=== PATIENT | female | born 2000 | race Caucasian/White ===

== ENCOUNTER 2018-10-06 12:12 | Emergency (ER) | payer SELFPAY ==
[2018-10-06 12:14] VITALS: BP 146/88; PULSE 79; RESP 14; TEMP 36.5; O2SAT 100; BMI 24.5
[2018-10-06 12:55] LABS: Absolute Lymphocyte Count 1.98 X10^3/ul (0.83-4.51); Absolute Neutrophil Count 5.8 X10^3/uL (2.0-7.7); Basophil# 0.05 X10^3/uL; Basophil% 0.6 % (0-1); Eosinophil# 0.15 X10^3/uL; Eosinophils% 1.7 % (0-5); Hematocrit 43.7 % (37-47); Hemoglobin 14.4 g/dl (12.0-15.0); Lymphocyte # 1.98 X10^3/ul (4.0); Lymphocyte % 23.1 % (19-41); Mean Corpuscular Hgb 29.6 pg (27.0-32.0); Mean Corpuscular Volume 89.9 fL (81-99); Mean Platelet Vol. 11.3 fl (6.2-12.0); Monocyte# 0.63 X10^3/uL; Monocyte% 7.3 % (0-10); Neutrophil # 5.77 X10^3/uL (2.7-7.7); Neutrophil % 67.2 % (47-70); Platelet Count 304 K/mm3 (150-450); RBC Distribution Width CV 14.9 % (11.6-14.6); RBC Distribution Width SD 48.5 fl (35.1-43.9); Red Blood Count 4.86 M/mm3 (4.2-5.4); White Blood Count 8.6 K/mm3 (4.4-11.0)
[2018-10-06 12:59] LABS: POSITIVE COUNT NO; POSITIVE DIFFERENTIAL NO; POSITIVE MORPHOLOGY NO
[2018-10-06 13:14] LABS: Pregnancy, Serum, hCG Quali. NEGATIVE Negative (0-9 Nonpreg)
--- NOTE | 2018-10-06 14:20 | ED.VISSUMM ---
- ER Visit Summary Date of Service: 10/06/18 Chief Complaint: Vaginal bleeding History of Present Illness: The patient is a 18 F with essentially a month of vaginal bleeding. Starting to improve but then became somewhat worse. She has had occasional clots and cramps but no lateralizing abdominal pain. Her last normal menstrual period was in late July. She initially thought that she could be but she had a negative test. She has never been before. Physical Examination: She is not in distress. Vital signs are within normal limits. Abdomen is soft and nontender. Female chaperoned pelvic examination reveals a closed cervix with no evidence of active bleeding. Test Results: CT is negative. Hemoglobin normal. Emergency Department Course and Treatment: She has a normal hemoglobin. She is not lightheaded. Cervix is closed. HCG is negative. I feel she can safely follow-up with RESERVES CLERK as an outpatient. She would like to follow-up with Dr. Beal at [facility]. Treatment Plan: Follow-up with RESERVES CLERK Disposition: Home stable Impression: Initial encounter abnormal vaginal bleeding This note was generated with [employer] dictation software. It may contain incorrect words, spelling, and punctuation that were not noted in review of the chart prior to signing ED Disposition - Plan for ED Patient: Chief Complaint: Vag Bld, Preg Instructions: ED Bleed Irregular Vaginal Additional Instructions: Followup with Dr. Beal
--- NOTE | 2018-10-06 14:24 | ED.DCSUM_ITS ---
- ER Visit Summary Date of Service: 10/06/18 Chief Complaint: Vaginal bleeding History of Present Illness: The patient is a 18 F with essentially a month of vaginal bleeding. Starting to improve but then became somewhat worse. She has had occasional clots and cramps but no lateralizing abdominal pain. Her last normal menstrual period was in late July. She initially thought that she could be but she had a negative test. She has never been before. Physical Examination: She is not in distress. Vital signs are within normal limits. Abdomen is soft and nontender. Female chaperoned pelvic examination reveals a closed cervix with no evidence of active bleeding. Test Results: CT is negative. Hemoglobin normal. Emergency Department Course and Treatment: She has a normal hemoglobin. She is not lightheaded. Cervix is closed. HCG is negative. I feel she can safely follow-up with DOCUMENT CLERK as an outpatient. She would like to follow-up with Dr. Beal at [facility]. Treatment Plan: Follow-up with DOCUMENT CLERK Disposition: Home stable Impression: Initial encounter abnormal vaginal bleeding This note was generated with [employer] dictation software. It may contain incorrect words, spelling, and punctuation that were not noted in review of the chart prior to signing ED Disposition - Plan for ED Patient: Chief Complaint: Vag Bld, Preg Instructions: ED Bleed Irregular Vaginal Additional Instructions: Followup with Dr. Beal
[2018-10-06 14:33] VITALS: BP 123/68; PULSE 70; RESP 15; O2SAT 97
--- OUTSIDE RECORDS SUMMARY | 2018-11-29 20:57 | XMS RPT_ITS ---
:2000 Author Organization OHIP Care Team Providers Name Role Phone PREETHI SANDOVAL ([facility]) Attending Unavailable PREETHI SANDOVAL ([facility]) Referring Unavailable DONNELL WHITE Attending Unavailable PREETHI SANDOVAL ([facility]) Referring Unavailable PREETHI SANDOVAL ([facility]) Attending Unavailable [facility] Admitting Unavailable [facility] Attending [facility] Care Unavailable DR CLYDE CHAVEZ Admitting Unavailable DR CLYDE CHAVEZ Attending Unavailable NO, DOCTOR ON Referring Unavailable DR CLYDE CHAVEZ Primary Care Unavailable NO, DOCTOR ON Consulting Unavailable Bo Pillai Attending Unavailable No Doctor Assigned, Nodr Primary Care Unavailable Bo Pillai Admitting Unavailable Bo Pillai Attending Unavailable No Doctor Assigned, Nodr Primary Care Unavailable Valentin Villalba Attending Unavailable Primay Care Physicia, No Primary Care Unavailable PROBLEMS PROBLEMS DATE TYPE CONDITION / CODE ATTENDING STATUS SOURCE 10/06/2018 Active Abnormal uterine NA Active [facility] and vaginal [facility] [place] bleeding, Repository unspecified / N93.9(ICD-10) 10/06/2018 Active Unknown / PREETHI SANDOVAL Active [facility] UNK(Unknown) (CN) [place] Repository PROCEDURES PROCEDURES No Procedure Records FoundRESULTS RESULTS PROCEDURE Observed: 10/15/2018 Status: COMPLETED Source: [place] 11:46 AM [facility] REPOSITORY HNO ID: [id number] Author: Rafia Rizvi Apn Student Service: (none) Author Type: (none) Type: Procedures Filed: 10/15/2018 4:55 PM Note Text: Procedures Rafia Belkys [place] Student Observed: 10/15/2018 Status: F Source: [place] TRICHOMONAS PREP 10:25 AM [facility] REPOSITORY Sp. Request/Comment: - Swab Smear Result - Negative for Trichomonas vaginalis antigen This test was developed and its performance characteristics determined by [facility] [place] ([facility] It has not been cleared or approved by the FDA. [facility] is regulated under CLIA as qualified to perform high-complexity testing. This test is used for clinical purposes. It should not be regarded as investigational or for research. Performed By: #### TRICHO #### [place] [address] Observed: 10/15/2018 Status: F Source: [place] BACT/CAND VAG GRM ST 10:25 [facility] REPOSITORY Sp. Request/Comment: - Swab Smear Result - BACTERIAL VAGINOSIS RESULT: Stain results consistent with bacterial vaginosis. --> ABNORMAL ALERT No Yeast observed Moderate Polymorphonuclear leukocytes Many Epithelial cells Performed By: #### BVCNSM #### [place] [address] Observed: 10/15/2018 Status: F Source: [place] URINE CULTURE 10:25 [facility] REPOSITORY Sp. Request/Comment: - Specimen received in preservative Culture Result - <10,000 CFU/ml Normal urogenital sean Performed By: #### URCUL #### [place] [address] GC/CHLAMYDIA AMPLIF Collected: 10/15/2018 Status: F Source: [place] 10:25 AM [facility] REPOSITORY TYPE CODE TESTS RESULT OUT OF REFERENCE UNITS RANGE LAB GCCTSR GC/Chlam Amp Cervix Source LAB GCAMPL GC Negative Amplification for Neisseria gonorrhoeae by amplification. LAB CLAMPL Chlamydia Negative Amplif for Chlamydia trachomatis by amplification. Performed By: #### GCCT #### [facility] [address] [place], [place] [address] PROGRESS Observed: 10/15/2018 Status: COMPLETED Source: [place] 9:59 AM [facility] [place] REPOSITORY HNO ID: [id number] Author: Preethi Sandoval Service: (none) Author Type: International Sales Representative Type: Progress Notes Filed: 10/15/2018 4:55 PM Note Text: Silvana Heredia is a 18 year old female who presents for vaginal discharge and odor for 2 week(s). Reports pelvic pain is achy pain. Cramping has not stopped since last visit, pain was bad again a few nights ago just as bad as when she went to emergency room. Used warm water/heat to help with symptoms. Vaginal odor now started and she notes more discharge when cramping. Vaginal discharge: moderate amount, foul smelling and white. Itching: No Dyspareunia: YES Fever/chills: No Abdominal pain: Yes, mostly lower abdominal pain Bladder: Negative for urgency and frequency, + dysuria Bowel: No blood in stool, pain with BM, tarry stool, persistent diarrhea or constipation Any new sexual partners or concern for STD exposure: No Any history of STDs: None Does your partner have any new complaints: No Are you currently taking any medications to treat vaginitis: No Do you use feminine sprays, douches or deodorants: No Menstrual cycle: cycles irregular q 21-40 days and 2-14 days of flow. Denies any further heavy vaginal bleeding Contraception: none, natural family planning and withdrawal Last pap: n/a Past medical, surgical, social history, medications and allergies reviewed and updated. OBJECTIVE: BP 122/72 Wt 144 lb (65.3kg) LMP 09/07/2018 GENERAL: Well developed, well nourished in no apparent distress ABDOMEN: soft, non-tender and no masses PELVIC: external genitalia normal, normal Bartholin's glands, urethra, Oriska's glands, no vulvar lesions, no cervical lesions, good vaginal support, physiologic discharge present, normal appearing perineal body and perianal region BIMANUAL: uterus normal size, shape and consistency, no adnexal masses and non-tender. RECTOVAGINAL: deferred. ASSESSMENT/PLAN: Vaginal Discharge, Vaginal Odor Office Visit on 10/15/18 -GC/CHLAMYDIA DNA DET -UA DIP OB, URINE (POC) -UA DIP, URINE (POC) -BACTERIAL VAGINOSIS SCORED GRAM STAIN -VAGINAL SMEAR FOR GUILLERMO -TRICHOMONAS PREP -URINE CULTURE Vaginitis culture collected to screen for Yeast, BV and Trichomonas STD screening: Accepted STD check for Gonorrhea and Chlamydia. Any new medications given to the patient have been explained as to directions, reasons for prescribing and side effects. Perineal hygeine and safe sex were discussed with the patient. Will call patient with results once received. Preethi Sandoval APRN.CNM CNOV Observed: 10/15/2018 Status: COMPLETED Source: [place] 9:45 AM [facility] REPOSITORY Office Visit (WOOB) SILVANA HEREDIA ([id number]) 2000 F Date Time Provider Department 10/15/18 9:45 AM PREETHI SANDOVAL ([place]) WOOB During your visit today, we recorded the following information about you: Blood pressure Weight Last Period 122/72 65.3 kg 09/07/18 Preethi Sandoval APRN.CNM 10/15/2018 4:55 PM Signed Silvana Heredia is a 18 year old female who presents for vaginal discharge and odor for 2 week(s). Reports pelvic pain is achy pain. Cramping has not stopped since last visit, pain was bad again a few nights ago just as bad as when she went to emergency room. Used warm water/heat to help with symptoms. Vaginal odor now started and she notes more discharge when cramping. Vaginal discharge: moderate amount, foul smelling and white. Itching: No Dyspareunia: YES Fever/chills: No Abdominal pain: Yes, mostly lower abdominal pain Bladder: Negative for urgency and frequency, + dysuria Bowel: No blood in stool, pain with BM, tarry stool, persistent diarrhea or constipation Any new sexual partners or concern for STD exposure: No Any history of STDs: None Does your partner have any new complaints: No Are you currently taking any medications to treat vaginitis: No Do you use feminine sprays, douches or deodorants: No Menstrual cycle: cycles irregular q 21-40 days and 2-14 days of flow. Denies any further heavy vaginal bleeding Contraception: none, natural family planning and withdrawal Last pap: n/a Past medical, surgical, social history, medications and allergies reviewed and updated. OBJECTIVE: BP 122/72 Wt 144 lb (65.3kg) LMP 09/07/2018 GENERAL: Well developed, well nourished in no apparent distress ABDOMEN: soft, non-tender and no masses PELVIC: external genitalia normal, normal Bartholin's glands, urethra, Oriska's glands, no vulvar lesions, no cervical lesions, good vaginal support, physiologic discharge present, normal appearing perineal body and perianal region BIMANUAL: uterus normal size, shape and consistency, no adnexal masses and non-tender. RECTOVAGINAL: deferred. ASSESSMENT/PLAN: Vaginal Discharge, Vaginal Odor Office Visit on 10/15/18 -GC/CHLAMYDIA DNA DET -UA DIP OB, URINE (POC) -UA DIP, URINE (POC) -BACTERIAL VAGINOSIS SCORED GRAM STAIN -VAGINAL SMEAR FOR GUILLERMO -TRICHOMONAS PREP -URINE CULTURE Vaginitis culture collected to screen for Yeast, BV and Trichomonas STD screening: Accepted STD check for Gonorrhea and Chlamydia. Any new medications given to the patient have been explained as to directions, reasons for prescribing and side effects. Perineal hygeine and safe sex were discussed with the patient. Will call patient with results once received. Preethi Sandoval APRN.GARY Rizvi Apn Student 10/15/2018 4:55 PM Signed Procedures Rafia Rizvi Apn Student Preethi Sandoval APRN.GARY 10/15/2018 4:55 PM Signed Minimizing irritation of the vulva (area around the vagina) Wear white cotton underwear. Avoid synthetic fabrics and tight clothing. Sleep wearing shorts or pajama bottoms without underwear. Shower as soon as possible after exercise. Avoid clothing detergents and soaps with perfumes or dyes. Use warm (not hot) water to wash the vulva and if you use soap use a product designed for sensitive skin (like Dove or Cetaphil). Do not douche or use creams/powders in the vulvar area unless instructed by your physician. If you must douche, use only plain warm water. Make sure the vulva is dry before dressing by patting dry with a towel. Avoid vigorous rubbing with the towel. You may want to use the blow dryer (on the cool setting only!) on the vulva. The most important way to let your body heal is by avoiding scratching. Many patients find it difficult to avoid scratching at night when they are most aware of the itchiness. You can try taking Benadryl just before bedtime. Some women find it helpful to wear cotton gloves to bed to avoid scratching at night. Preethi Sandoval APRN.CNM 10/16/2018 10:37 AM Signed Addended by: PREETHI SANDOVAL CNM on: 10/16/2018 10:37 AM Modules accepted: Orders Referring Provider: SELF [200] Allergies As of Date: 10/15/2018 (No Known Allergies) Date Reviewed: 10/15/2018 Reviewed by: Harleen Hernandez Ma - Fully Assessed Reason for Visit: Vaginal Problem [117] Primary Visit Diagnosis:Vaginal discharge [N89.8] Other Visit Diagnoses:Vaginal odor [N89.8] Routine screening for STI (sexually transmitted infection) [Z11.3] Dysuria [R30.0] Order(s):TRICHOMONAS PREP [SQTRICHO] Order #: [id number]. #:[id number] GC/CHLAMYDIA DNA DET [SQGCCAMP] Order #: [id number] URINE CULTURE [SQURCUL] Order #: [id number]. #:[id number] UA DIP OB, URINE (POC) [2449718] Order #: [id number] UA DIP, URINE (POC) [[id number]] Order #: [id number]. #:[id number] BACT/GIULLERMO VAG GRAM STAIN [SQBVCNSM] Order #: [id number]. #:[id number] metroNIDAZOLE (FLAGYL) 500 mg tabletTake 1 tablet by mouth twice daily for 7 days.Disp: 14 tabletRfl: 0 Prescriptions as of 10/15/2018 Sig: BIOTIN ORAL Take 5,000 mcg by mouth. CHOLECALCIFEROL (VITAMIN D3) * Take 1,000 Units by mouth onc* CINNAMON ORAL Take 1,000 mg by mouth twice * CRANBERRY ORAL Take 465 mg by mouth once dilip* VITAMIN B12 ORAL Take by mouth. IRON ORAL Take 28 mg by mouth. PROBIOTIC COMPLEX ORAL Take by mouth. METRONIDAZOLE 500 MG TABLET Take 1 tablet by mouth twice * Problem List As Of Date: 10/15/2018 (None) Other instructions from your clinician: Minimizing irritation of the vulva (area around the vagina) Wear white cotton underwear. Avoid synthetic fabrics and tight clothing. Sleep wearing shorts or pajama bottoms without underwear. Shower as soon as possible after exercise. Avoid clothing detergents and soaps with perfumes or dyes. Use warm (not hot) water to wash the vulva and if you use soap use a product designed for sensitive skin (like Dove or Cetaphil). Do not douche or use creams/powders in the vulvar area unless instructed by your physician. If you must douche, use only plain warm water. Make sure the vulva is dry before dressing by patting dry with a towel. Avoid vigorous rubbing with the towel. You may want to use the blow dryer (on the cool setting only!) on the vulva. The most important way to let your body heal is by avoiding scratching. Many patients find it difficult to avoid scratching at night when they are most aware of the itchiness. You can try taking Benadryl just before bedtime. Some women find it helpful to wear cotton gloves to bed to avoid scratching at night. Prescriptions ordered this encounter Disp Refills Start End METRONIDAZOLE 500 MG TABLET 14 t* 0 10/16/2018 10/23/2018 Class: Print RX Route: ORAL Sig: Take 1 tablet by mouth twice daily for 7 days. Disposition: Return if symptoms worsen or fail to improve. Follow-up and Disposition History Recorded Encounter Status:Closed by PREETHI SANDOVAL CNM on 10/15/18 PROGRESS Observed: 10/13/2018 Status: COMPLETED Source: [place] 9:08 AM [facility] REPOSITORY HNO ID: [id number] Author: Donnell White Service: (none) Author Type: Physician Type: Progress Notes Filed: 10/13/2018 9:13 AM Note Text: A normal sized anteverted uterus with the measurements shown below. The endometrial echo measures 6.1 mm. The endometrial cavity appears normal. The myometrium appears normal. Bilateral polycystic ovaries There is no free fluid in the cul de sac IMPRESSION: Bilateral polycystic ovaries HCG, QUANTITATIVE BL Collected: 10/06/2018 Status: F Source: [place] 4:25 PM [facility] REPOSITORY TYPE CODE TESTS RESULT OUT OF REFERENCE UNITS RANGE LAB HCGQT <5.0 mU/mL HCG, Quantitative Bl <0.6 Result Comment: NEGATIVE Performed By: #### HCGQT, TSH #### [facility] [place] [address] [place], [place] [address] TSH Collected: 10/06/2018 Status: F Source: [place] 4:25 PM [facility] REPOSITORY TYPE CODE TESTS RESULT OUT OF RANGE REFERENCE UNITS LAB TSH 0.510-4.300 uU/mL TSH 3.550 Result Comment: If the patient is , TSH reference range varies by gestational period: First Trimester 0.100-2.500 uU/mL Second Trimester 0.200-3.000 uU/mL Third Trimester 0.300-3.000 uU/mL References: 1. Roper L, Mari M, Rosalio EK, et al. Management of Thyroid Dysfunction during and : An Endocrine Society Clinical Practice Guideline. J Clin Endocrinol Metab, 2012:97:5990-2162. 2. Jonnathan ARAIZA. Overview of thyroid disease in . UpToDate. 2016. Accessed on April 20, 2016. Performed By: #### HCGQT, TSH #### [facility] [place] [address] [place] [id number] PROGRESS Observed: 10/06/2018 Status: COMPLETED Source: [place] 3:43 PM [facility] REPOSITORY HNO ID: [id number] Author: Preethi Sandoval Service: (none) Author Type: International Sales Representative Type: Progress Notes Filed: 10/06/2018 6:50 PM Note Text: Silvana Heredia is a 18 year old female who presents for ER follow- up visit today following abnormal bleeding on and off for 4 week(s). HPI: Patient reports hx of heavy irregular periods since menarche; she had been on an OCP for 6 months but stopped in January due to weight gain, mood changes and other unpleasant side effects. Patient has had regular periods q 4 weeks since stopping OCP, took a test on 09/06/18 at home that was negative. Patient reports LMP = 07/28/18. Patient and then spotting starting 09/06/18 with start of very heavy bleeding with clots on 09/10-09/25. Bleeding then stopped for 2 days and then resumed again as light spotting/bleeding from 09/28-10/04 and then extremely heavy bleeding and passage of quarter and half dollar-sized clots on 10/04 and 10/05. Bleeding slightly decreased today and she is having stringy clots. ER report shows negative test again, cervix closed by SSE and no active bleeding noted. Hgb per ER report was normal. Patient is concerned about this bleeding and implications for future childbearing. No past medical history on file. No past surgical history on file. No family history on file. Social History Marital status: Spouse name: Years of education: Number of children: Social History Main Topics Smoking status: Never Smoker Smokeless tobacco: Never Used Alcohol use: Yes Comment: Seldom Drug use: No Sexual activity: Yes Partners with: Male Current Outpatient Prescriptions: ferrous sulfate (IRON ORAL) Take 28 mg by mouth. cinnamon bark (CINNAMON ORAL) Take 1,000 mg by mouth twice daily. cranberry fruit extract (CRANBERRY ORAL) Take 465 mg by mouth once daily. cholecalciferol (VITAMIN D) 1,000 unit tab tablet Take 1,000 Units by mouth once daily. BIOTIN ORAL Take 5,000 mcg by mouth. cyanocobalamin, vitamin B-12, (VITAMIN B12 ORAL) Take by mouth. lactobacillus combo no.6 (PROBIOTIC COMPLEX ORAL) Take by mouth. No current facility-administered medications for this visit. Allergies As of Date: 10/06/2018 (No Known Allergies) Fully Assessed 10/06/2018 REVIEW OF SYSTEMS Abdomen: No bloating, early satiety, indigestion, or increased flatulence. No abdominal pain, nausea, vomiting, diarrhea, or constipation. Bladder: No dysuria, gross hematuria, urinary frequency, urinary urgency, or incontinence. Breast: No breast lumps, nipple d/c, overlying skin changes, redness or skin retraction. Expanded ROS: FEATHERER: SEE HPI Allergies and current medication updated:Yes EXAM: BP 106/68 Ht 5' 6.4 (1.69m) Wt 145 lb (65.8kg) LMP 09/10/2018 BMI 23.11 kg/(m2). GENERAL: pleasant, female in no apparent distress HEENT: Normocephalic, atraumatic, mucus membranes moist and no lesions NECK: Supple, full range of motion, no adenopathy and thyroid normal DERMATOLOGY: Normal, without lesions, non-icteric and non-hirsute BREAST: deferred CHEST: Normal inspiratory effort ABDOMEN: soft, non-tender and no masses PELVIC: deferred BIMANUAL: deferred NEURO: alert and oriented x3,exam grossly non-focal EXTREMITIES: normal ASSESSMENT AND PLAN: Encounter Diagnosis ICD-10-CM 1. Abnormal uterine bleeding (AUB) N93.9 TSH BLD HCG QUANTITATIVE 1) TSH ordered to rule out thyroid disorder 2) uhcg negative and CBC WNL from ER report 3) Patient requests blood quant bhcg - ordered 4) If labwork WNL - consider limited pelvic u/s to assess uterine lining, presence of fibroids or other irregular uterine contour that could attribute to irregular heavy bleeding 5) RTC PRN - pap recommended in 1 year. JING WillinghamOV Observed: 10/06/2018 Status: COMPLETED Source: [place] 3:30 PM [facility] REPOSITORY Office Visit (WOOB) SILVANA HEREDIA ([id number]) 2000 F Date Time Provider Department 10/06/18 3:30 PM PREETHI SANDOVAL ([place]) WOOB During your visit today, we recorded the following information about you: Blood pressure Weight Height Last Period 65.8 kg 1.687 m 09/10/18 Preethi SandovalNANDA.CNM 10/06/2018 6:50 PM Signed Silvana Heredia is a 18 year old female who presents for ER follow- up visit today following abnormal bleeding on and off for 4 week(s). HPI: Patient reports hx of heavy irregular periods since menarche; she had been on an OCP for 6 months but stopped in January due to weight gain, mood changes and other unpleasant side effects. Patient has had regular periods q 4 weeks since stopping OCP, took a test on 09/06/18 at home that was negative. Patient reports LMP = 07/28/18. Patient and then spotting starting 09/06/18 with start of very heavy bleeding with clots on 09/10-09/25. Bleeding then stopped for 2 days and then resumed again as light spotting/bleeding from 09/28-10/04 and then extremely heavy bleeding and passage of quarter and half dollar-sized clots on 10/04 and 10/05. Bleeding slightly decreased today and she is having stringy clots. ER report shows negative test again, cervix closed by SSE and no active bleeding noted. Hgb per ER report was normal. Patient is concerned about this bleeding and implications for future childbearing. No past medical history on file. No past surgical history on file. No family history on file. Social History Marital status: Spouse name: Years of education: Number of children: Social History Main Topics Smoking status: Never Smoker Smokeless tobacco: Never Used Alcohol use: Yes Comment: Seldom Drug use: No Sexual activity: Yes Partners with: Male Current Outpatient Prescriptions: ferrous sulfate (IRON ORAL) Take 28 mg by mouth. cinnamon bark (CINNAMON ORAL) Take 1,000 mg by mouth twice daily. cranberry fruit extract (CRANBERRY ORAL) Take 465 mg by mouth once daily. cholecalciferol (VITAMIN D) 1,000 unit tab tablet Take 1,000 Units by mouth once daily. BIOTIN ORAL Take 5,000 mcg by mouth. cyanocobalamin, vitamin B-12, (VITAMIN B12 ORAL) Take by mouth. lactobacillus combo no.6 (PROBIOTIC COMPLEX ORAL) Take by mouth. No current facility-administered medications for this visit. Allergies As of Date: 10/06/2018 (No Known Allergies) Fully Assessed 10/06/2018 REVIEW OF SYSTEMS Abdomen: No bloating, early satiety, indigestion, or increased flatulence. No abdominal pain, nausea, vomiting, diarrhea, or constipation. Bladder: No dysuria, gross hematuria, urinary frequency, urinary urgency, or incontinence. Breast: No breast lumps, nipple d/c, overlying skin changes, redness or skin retraction. Expanded ROS: FEATHERER: SEE HPI Allergies and current medication updated:Yes EXAM: BP 106/68 Ht 5' 6.4 (1.69m) Wt 145 lb (65.8kg) LMP 09/10/2018 BMI 23.11 kg/(m2). GENERAL: pleasant, female in no apparent distress HEENT: Normocephalic, atraumatic, mucus membranes moist and no lesions NECK: Supple, full range of motion, no adenopathy and thyroid normal DERMATOLOGY: Normal, without lesions, non-icteric and non-hirsute BREAST: deferred CHEST: Normal inspiratory effort ABDOMEN: soft, non-tender and no masses PELVIC: deferred BIMANUAL: deferred NEURO: alert and oriented x3,exam grossly non-focal EXTREMITIES: normal ASSESSMENT AND PLAN: Encounter Diagnosis ICD-10-CM 1. Abnormal uterine bleeding (AUB) N93.9 TSH BLD HCG QUANTITATIVE 1) TSH ordered to rule out thyroid disorder 2) uhcg negative and CBC WNL from ER report 3) Patient requests blood quant bhcg - ordered 4) If labwork WNL - consider limited pelvic u/s to assess uterine lining, presence of fibroids or other irregular uterine contour that could attribute to irregular heavy bleeding 5) RTC PRN - pap recommended in 1 year. JING Willingham APRN.CNM 10/06/2018 6:50 PM Signed [facility] Preconception Counseling Caring for your health before you become -- called preconception care -- will help you learn about any risk factors and treat any medical problems that you may have before you become . Planning for your before you conceive will help you make healthy decisions for you and your baby. Pre-conception counseling helps educate women so they can be physically and emotionally prepared - and healthy - for . During a preconception office visit, your health care provider will discuss: [employer] history: previous pregnancies, menstrual history, contraceptive use, sexually transmitted diseases, Pap smears, vaginal infections as well as previous Pap test results. Medical/surgical history: surgeries, transfusions, hospitalizations, pre-existing medical conditions, allergies, current medications (including prescribed and [id number] medications) Family health history: hypertension, diabetes, twins, genetic factors such as mental retardation, blindness, deafness, congenital anomalies, ethnic-related conditions such as Juliano-Sachs, sickle trait/sickle cell, thalassemia Your weight: your health care provider will tell you to try to reach your ideal body weight before becoming . This means losing weight if you are overweight to reduce your risk of high blood pressure complications; or gaining weight if you are underweight to reduce the risk of delivering a low -weight baby. Personal life style factors, as well as your partner's, that may influence : Smoking, drinking alcohol and using recreational drugs are habits that need to be stopped in order for you to have a healthy . Home and workplace environment: possible teratogens and hazards, such as exposure to cat feces, x-rays, lead or solvents. Smoking during affects you and your baby's health before, during and after your baby is born. The nicotine (the addictive substance in cigarettes), carbon monoxide and numerous other poisons you inhale from a cigarette are carried through your bloodstream and go directly to your baby. Smoking wile will: Lower the amount of oxygen available to you and your growing baby Increase your baby's heart rate. Increase the chances of miscarriage and stillbirth. Increase the risk that your baby is born prematurely and/or born with low weight. Increase your baby's risk of developing respiratory problems. There are many smoking cessation programs available in your community to help you quit smoking. Ask your health care provider for more information about these programs. Excessive drinking can lead to Alcohol Syndrome, a pattern of defects that includes mental retardation, as well as cardiovascular;skeletal and facial abnormalities. You may not know if you have a drinking problem. Her are some signs: Drinking alone when you feel angry or sad. Drinking in a pattern (every day or every week at the same time) Planning activities around drinking Drinking to relieve pain or stress Drinking more than you meant to or after you told yourself you wouldn't Drinking to get drunk Thinking a lot about drinking Showing a personality change when you drink. Talk to your health care provider honestly about your use of alcohol. He or she can give you more information and refer you for counseling or treatment, if needed. Exercise Review your exercise program with your health are provider. Generally, you may continue your normal exercise routine throughout unless you are instructed to decrease or modify your activities. Your Diet Your health care provider will talk about your dietary habits, including your consumption of caffeine. To ensure a healthy , you should follow a healthy, well-balanced diet and eat a variety or foods to get all the nutrients you need. Choose foods high in starch and fiber. Make sure you are getting enough vitamins and minerals in your daily diet: eat and drink at least 4 servings of dairy products and calcium-rich foods a day, choose at least one source each of Vitamin C, Vitamin A and folic acid every day. Caffeine consumption: When planning a , it is recommended that you do not have more than 300mg. of caffeine per day (two 5-ounce cups of coffee, three 5-ounce cups of tea or two 12-ounce glasses of caffeinated soda). Remember, chocolate contains caffeine -- the amount of caffeine in a chocolate bar is equal to 1/4 cup of coffee. vitamins: Before considering a , you should begin taking a daily vitamin that contains folic acid. Folic acid has been shown to decrease the risk of having a baby with a neural tube defect, such as spina bifida - a serious condition in which the brain and spinal cord do not form normally. The [employer] recommends taking 400 micrograms of folic acid daily before conception and in early . Many pharmacies sell rpoe-wtb-tmukcbx vitamins that do not require a prescription. Other components of preconception counseling appointment Your health care provider may also: Perform a physical exam: to evaluate your heart, lungs, breasts, thyroid and abdomen. A pelvic exam may also be performed. Order lab tests: rubella, hepatitis, complete blood count (CBC), HIV, others as indicated Discuss how to chart menstrual cycles to detect ovulation and determine the time when you are most likely to get . Discuss genetic counseling which can help couples become aware of their chances of having a child with a defect. Genetic counseling is advised for women who will be 35 or older when the baby is due, for couples who have already had a child with a defect or couples with a family history of genetic problems, defects or mental retardation. [facility] MENSTRUAL FLOW CHART Silvana Heredia [address] [facility] [address] (home) 2017 # of days from start of period to beginning of next Breast Exam Done Month 1 2 3 4 5 6 7 8 9 10 11 12 13 14 15 16 17 18 19 20 21 22 23 24 25 26 27 28 29 30 31 Nov. Dec. January. Jul. Oct. Don't forget to have this chart with you when you call or visit the doctor TYPE OF FLOW Normal = N [facility] Light = L [facility] Heavy = H Spotting = S Referring Provider: SELF [200] Allergies As of Date: 10/06/2018 (No Known Allergies) Date Reviewed: 10/06/2018 Reviewed by: Janel Cruz Ma - Fully Assessed Reason for Visit: Vaginal Bleeding [203] Cmt: Vaginal Bleeding and Cramping Primary Visit Diagnosis:Abnormal uterine bleeding (AUB) [N93.9] Order(s):TSH BLD [SQTSH] Order #: [id number] FUTURE HCG QUANTITATIVE [SQHCGQT] Order #: [id number] FUTURE Prescriptions as of 10/06/2018 Sig: IRON ORAL Take 28 mg by mouth. CINNAMON ORAL Take 1,000 mg by mouth twice * CRANBERRY ORAL Take 465 mg by mouth once dilip* CHOLECALCIFEROL (VITAMIN D3) * Take 1,000 Units by mouth onc* BIOTIN ORAL Take 5,000 mcg by mouth. VITAMIN B12 ORAL Take by mouth. PROBIOTIC COMPLEX ORAL Take by mouth. Problem List As Of Date: 10/06/2018 (None) Other instructions from your clinician: [facility] Preconception Counseling Caring for your health before you become -- called preconception care -- will help you learn about any risk factors and treat any medical problems that you may have before you become . Planning for your before you conceive will help you make healthy decisions for you and your baby. Pre-conception counseling helps educate women so they can be physically and emotionally prepared - and healthy - for . During a preconception office visit, your health care provider will discuss: [facility] history: previous pregnancies, menstrual history, contraceptive use, sexually transmitted diseases, Pap smears, vaginal infections as well as previous Pap test results. Medical/surgical history: surgeries, transfusions, hospitalizations, pre-existing medical conditions, allergies, current medications (including prescribed and dugc-jzh-lmvnmeg medications) Family health history: hypertension, diabetes, twins, genetic factors such as mental retardation, blindness, deafness, congenital anomalies, ethnic-related conditions such as Juliano-Sachs, sickle trait/sickle cell, thalassemia Your weight: your health care provider will tell you to try to reach your ideal body weight before becoming . This means losing weight if you are overweight to reduce your risk of high blood pressure complications; or gaining weight if you are underweight to reduce the risk of delivering a low -weight baby. Personal life style factors, as well as your partner's, that may influence : Smoking, drinking alcohol and using recreational drugs are habits that need to be stopped in order for you to have a healthy . Home and workplace environment: possible teratogens and hazards, such as exposure to cat feces, x-rays, lead or solvents. Smoking during affects you and your baby's health before, during and after your baby is born. The nicotine (the addictive substance in cigarettes), carbon monoxide and numerous other poisons you inhale from a cigarette are carried through your bloodstream and go directly to your baby. Smoking wile will: Lower the amount of oxygen available to you and your growing baby Increase your baby's heart rate. Increase the chances of miscarriage and stillbirth. Increase the risk that your baby is born prematurely and/or born with low weight. Increase your baby's risk of developing respiratory problems. There are many smoking cessation programs available in your community to help you quit smoking. Ask your health care provider for more information about these programs. Excessive drinking can lead to Alcohol Syndrome, a pattern of defects that includes mental retardation, as well as cardiovascular;skeletal and facial abnormalities. You may not know if you have a drinking problem. Her are some signs: Drinking alone when you feel angry or sad. Drinking in a pattern (every day or every week at the same time) Planning activities around drinking Drinking to relieve pain or stress Drinking more than you meant to or after you told yourself you wouldn't Drinking to get drunk Thinking a lot about drinking Showing a personality change when you drink. Talk to your health care provider honestly about your use of alcohol. He or she can give you more information and refer you for counseling or treatment, if needed. Exercise Review your exercise program with your health are provider. Generally, you may continue your normal exercise routine throughout unless you are instructed to decrease or modify your activities. Your Diet Your health care provider will talk about your dietary habits, including your consumption of caffeine. To ensure a healthy , you should follow a healthy, well-balanced diet and eat a variety or foods to get all the nutrients you need. Choose foods high in starch and fiber. Make sure you are getting enough vitamins and minerals in your daily diet: eat and drink at least 4 servings of dairy products and calcium- rich foods a day, choose at least one source each of Vitamin C, Vitamin A and folic acid every day. Caffeine consumption: When planning a , it is recommended that you do not have more than 300mg. of caffeine per day (two 5-ounce cups of coffee, three 5-ounce cups of tea or two 12-ounce glasses of caffeinated soda). Remember, chocolate contains caffeine -- the amount of caffeine in a chocolate bar is equal to 1/4 cup of coffee. vitamins: Before considering a , you should begin taking a daily vitamin that contains folic acid. Folic acid has been shown to decrease the risk of having a baby with a neural tube defect, such as spina bifida - a serious condition in which the brain and spinal cord do not form normally. The [employer] recommends taking 400 micrograms of folic acid daily before conception and in early . Many pharmacies sell ixgz-mtc-bfobbry vitamins that do not require a prescription. Other components of preconception counseling appointment Your health care provider may also: Perform a physical exam: to evaluate your heart, lungs, breasts, thyroid and abdomen. A pelvic exam may also be performed. Order lab tests: rubella, hepatitis, complete blood count (CBC), HIV, others as indicated Discuss how to chart menstrual cycles to detect ovulation and determine the time when you are most likely to get . Discuss genetic counseling which can help couples become aware of their chances of having a child with a defect. Genetic counseling is advised for women who will be 35 or older when the baby is due, for couples who have already had a child with a defect or couples with a family history of genetic problems, defects or mental retardation. [facility] MENSTRUAL FLOW CHART Silvana Heredia [address] [facility] [address] (home) 2017 # of days from start of period to beginning of next Breast Exam Done Month 1 2 3 4 5 6 7 8 9 10 11 12 13 14 15 16 17 18 19 20 21 22 23 24 25 26 27 28 29 30 31 Dec. January. Don't forget to have this chart with you when you call or visit the doctor TYPE OF FLOW Normal = N [facility] Light = L [facility] Heavy = H Spotting = S Disposition: Return if symptoms worsen or fail to improve. Follow-up and Disposition History Recorded Encounter Status:Closed by PREETHI SANDOVAL CNM on 10/06/18 EMERGENCY DEPARTMENT Observed: 10/06/2018 Status: F Source: [place] SUMMARY 2:24 PM [facility] REPOSITORY [facility] Medical Records Department [address] [place] [address] Emergency Department Summary 10/06/18 1420 MR#: [id number] Acct: [id number] Name: SILVANA HEREDIA Rep #: [id number] : 2000 18 From: Mason Villalba MD PCP: Care Physician, No Primary Status: REG ER - ER Visit Summary Date of Service: 10/06/18 Chief Complaint: Vaginal bleeding History of Present Illness: The patient is a 18 F with essentially a month of vaginal bleeding. Starting to improve but then became somewhat worse. She has had occasional clots and cramps but no lateralizing abdominal pain. Her last normal menstrual period was in late July. She initially thought that she could be but she had a negative test. She has never been before. Physical Examination: She is not in distress. Vital signs are within normal limits. Abdomen is soft and nontender. Female chaperoned pelvic examination reveals a closed cervix with no evidence of active bleeding. Test Results: CT is negative. Hemoglobin normal. Emergency Department Course and Treatment: She has a normal hemoglobin. She is not lightheaded. Cervix is closed. HCG is negative. I feel she can safely follow-up with [facility] as an outpatient. She would like to follow-up with Dr. Sandoval at [facility]. Treatment Plan: Follow-up with [facility] Disposition: Home stable Impression: Initial encounter abnormal vaginal bleeding This note was generated with [facility] dictation software. It may contain incorrect words, spelling, and punctuation that were not noted in review of the chart prior to signing ED Disposition - Plan for ED Patient: Chief Complaint: Vag Bld, Preg Instructions: ED Bleed Irregular Vaginal Additional Instructions: Followup with Dr. Sandoval What to do if you have Problems For any increased pain, shortness of breath, bleeding, nausea or vomiting, chest pain, or any unexpected problems, contact your Primary Care Provider. Call [facility] ([phone]) or report to the closest Emergency Room. Call 911 if necessary. 10/06/18 1424 <Electronically signed by Mason Villalba MD> Date Mason Villalba MD Cosigner Signature (If Indicated): Date CC: No Primary Care Physician CBC W/DIFF, AUTOMATED Collected: 10/06/2018 Status: F Source: [place] 12:45 PM [facility] REPOSITORY TYPE CODE TESTS RESULT OUT OF RANGE REFERENCE UNITS LAB L100.1000 4.4-11.0 K/mm3 Normal WBC 8.6 LAB L100.1200 4.2-5.4 M/mm3 Normal RBC 4.86 LAB L100.1300 12.0-15.0 g/dl Normal HGB 14.4 LAB L100.1400 37-47 % Normal HCT 43.7 LAB L100.1500 81-99 fL Normal MCV 89.9 LAB L100.1600 27.0-32.0 pg Normal MCH 29.6 LAB L100.1700 32-36 g/gl Normal MCHC 33.0 LAB L100.1810 11.6-14.6 % High RDW CV 14.9 LAB L100.1820 35.1-43.9 fl High RDW SD 48.5 LAB L100.1900 150-450 K/mm3 Normal PLT 304 LAB L100.2000 6.2-12.0 fl Normal MPV 11.3 LAB L100.2100 47-70 % Normal NEUT% 67.2 LAB L100.2200 19-41 % Normal LY% 23.1 LAB L100.2300 0-10 % Normal MONO% 7.3 LAB L100.2400 0-5 % Normal EO% 1.7 LAB L100.2500 0-1 % Normal BASO% 0.6 LAB L100.2550 0.0-0.9 % Normal IM GRAN % 0.100 Result Comment: IG% - Immature Granulocytes (promyelocytes, myelocytes and metamyelocytes) > 1% indicates that a LEFT SHIFT is Present. LAB L100.2620 2.0-7.7 X10 3/uL Normal Absolute Neut 5.8 LAB L100.2720 0.83-4.51 X10 3/ul Normal Absolute Lymph 1.98 Performed By: #### L100.0100 #### [facility] [address] [facility], [address] ,SERUM,HCG QUALI. Collected: Status: F Source: [place] 10/06/2018 12:45 PM [facility] REPOSITORY TYPE CODE TESTS RESULT OUT OF REFERENCE UNITS RANGE LAB L700.7000 0-9 Nonpreg Negative Normal HCGSQUAL NEGATIVE LAB L700.6700 =>Qualitative mIU/mL Normal HCG Qual < 1 triggr Performed By: #### L700.6800 #### [facility] [address] [place], [address] EMERGENCY REPORT Observed: 06/15/2018 Status: F Source: [facility] 8:33 PM [facility] EMERGENCY ROOM REPORT NAME ACCOUNT SEX AGE ADMIT DISCHARGE PT MED. RECORD# NUMBER DATE TYPE SILVANA HEREDIA [id number] F 18 06/07/18 06/07/18 3 DODIE [id number] ROOM: ER DATE OF : 2000 DICTATING PHYSICIAN: Clyde Chavez CHIEF COMPLAINT: Rash. HISTORY OF PRESENT ILLNESS: Patient began with a rash yesterday that seems to be worse today. Significant other states that they had a different beer night. Additionally, yesterday morning patient did have an episode of some chills and a couple of episodes of vomiting but that has resolved before the rash developed. She has not had documented fever but does feel very warm and sometimes chilled at times. No cough, congestion, sore throat, or any other complaints. Rash is mildly itchy. She does not have any known exposure to any different medicines or foods other than the beer. PAST MEDICAL HISTORY: Negative for chronic medical problems. PAST SURGICAL HISTORY: No previous surgeries. MEDICATIONS: She takes no medications. ALLERGIES: She is allergic to amoxicillin. SOCIAL HISTORY: She lives at home. She does not smoke. She drinks alcohol occasionally. PHYSICAL EXAMINATION: This is a 18-year-old female who is alert and appropriate. Patient does not appear toxic or in acute distress. Skin is pink, warm and dry. She does have a scattered maculopapular rash. It is mostly truncal, somewhat to her neck and minimally to her face. She does have it to her extremities as well. There are no open areas, vesicles, or ulcers. HEENT exam is otherwise all within normal limits. Her neck is supple, no adenopathy. Lungs are clear, no crackles or wheezes. Cardiac exam, regular rhythm without any ectopy, murmurs, gallops, or rubs. Abdomen is soft and nontender. Moves all extremities appropriately. Good peripheral pulses and good capillary refill. VITAL SIGNS: Temperature 100.6, pulse 87, respirations 18, blood pressure 135/88. EMERGENCY DEPARTMENT COURSE AND TREATMENT: I do not feel that any lab studies would really be very helpful. She was given a prescription for a several day course of prednisone. Yrgg-fkp-zozvtvc Hedy and/or Benadryl is recommended. Page 1 of 2 SILVANA HEREDIA Emergency Room Report DIAGNOSIS: Patient has a maculopapular rash of uncertain cause. She does have a slight low-grade fever. Possible viral exanthem, possible allergic reaction. PLAN/DISPOSITION: She is to follow up with [facility] in 2-4 days if no better, returning if symptoms worsen. Dictated By: Clyde Chavez MD 06/07/18 13:18 JOB #: [id number] Transcribed By: dimitrios 06/07/18 15:46 Electronically signed by: JOHNATHON Chavez M.D. 06/15/18 20:27 Page 2 of 2 SILVANA HEREDIA Emergency Room Report ALLERGIES ALLERGIES DATE TYPE / CODE NAME / CODE REACTION SEVERITY SOURCE 10/06/2018 Drug No Known Unknown [place] Allergy/416 Allergies/D440157 [facility] 666994(SNOM 388(RXNORM) Hospital ED CT) Repository Drug NO KNOWN [facility] Class/00611 ALLERGIES [place] 1003(SNOMED Repository CT) Drug AMOXICILLIN/83347 Moderate Joselito Pomerene Allergy/416 376(RXNORM) (Severity [facility] 395240(SNOM Modifier) [facility] ED CT) (Qualifier Repository Value) Drug/104846 No Known [facility] 003(SNOMED [facility] CT) Allergies System Repository ENCOUNTERS ENCOUNTERS ADMIT/DISCHARGE ACCOUNT NUMBER ADMITTING ENCOUNTER LOCATION SOURCE CLASS 10/15/2018/10/16/20 [id number] Ambulatory [address] [place] Repository 10/10/2018/10/14/20 [id number] Ambulatory [address] [place] Repository 10/06/2018/10/06/20 [id number] Ambulatory [address] [place] Repository 10/06/2018/10/07/20 [id number] Ambulatory [address] [place] Repository 10/06/2018/10/06/20 [id number] Emergency Maria Victoria Maria Victoria [address] [place] [address] ding:ED Repository 06/07/2018/06/07/[id number] CLYDE CHAVEZ Emergency [address] [place] [address] Room: ERBed: [facility] Repository 01/17/2018/01/18/20 [id number] JOSELITO, [facility] Repository 01/13/2018/01/14/[id number] System :[employer] Repository 12/16/2017/12/16/19 [id number] Bo Pillai Ambulatory [address] System :[facility] Repository om: Room 5 PAYERS PAYERS ENCOUNTER GUARANTOR PAYER SUBSCRIBER SOURCE 10/06/2018 SILVANA Olguin Primary Insurance:SELF NOT GIVENUNK Maria Victoria HEREDIA[address] PA[address] Number: Effective Hospital [phone]: [phone]) Date:2018-10-06 Repository [phone] (HP) 06/07/2018 MAVYN LLANE Primary MAVASHOK Goodman KLINEDOB: Insurance:AULTCARE KLINEDOB: [facility] [id number] [facility] [id number] [facility] [address] Number: [address] Repository [address] [place] [address] [id number] [place] [phone]: [phone]) Date:Plan Name: [id number] [phone] () 01/13/2018 SILVANA Olguin Primary Insurance:1500 BOBBY Zayas SANTIAGOCRISTALNILESHOB: ANTHEMPolicy Number: SHUMARDDOB: [facility] Effective [id number] [facility] Date:2017-12-16 - [address] Repository [address] [place] [address] [id number] [address]Lhs: [phone]) Name:CD:[id number] [place] [id number]: [phone] () [address], [place] [address]IT: [phone]) (HP) [phone] (WP) 12/16/2017 SILVANA Olguin Primary Insurance:1500 BOBBY Zayas SHCRISTALDDOB: ANTHEMPolicy Number: SHUMARDDOB: [facility] Effective [id number] [facility] Date:2017-12-16 - [address] Repository [address] [place] [address] [id number] [address]Dgv: [phone]) Name:CD:[id number] O , [place] [address]Hth: [phone] (HP) [address], [place] [address]KJ: [phone]) (HP) [phone] (WP)
== END 2018-10-06 14:35 | disposition home or self-care (01) ==
LOC: ED 13:08
PROVIDERS: Emergency Provider Emergency Medicine
DX: N93.9 Abnormal uterine and vaginal bleeding, unspecified (principal)
CPT/HCPCS: 84703; 85025; 99282; A4216